=== PATIENT | male | born 1970 | race Caucasian/White ===

== ENCOUNTER 2017-02-20 06:13 | Day surgery (SDC) | payer BC ==
[~2017-02-20 06:13] MED LIST: Buffered Lidocaine 0.9% SYRIN* 5 ML/SYR SYRINGE INTRADERM ONE; Dexamethasone IV* 4 MG/ML 1 ML (4 MG) IV SLOW PU ONE; Famotidine IV* 10 MG/ML 2 ML (20 mg) IV ONE; Levalbuterol 0.63MG/3ML NEB* UNIT OF USE INH ONE
[2017-02-20] MEDS ORDERED: Famotidine IV* 10 MG/ML 2 ML (20 mg) ONE (06:17)
[2017-02-20] MEDS ORDERED: Dexamethasone IV* 4 MG/ML 1 ML (4 MG) ONE (06:18)
[2017-02-20] MEDS ORDERED: Buffered Lidocaine 0.9% SYRIN* 5 ML/SYR SYRINGE ONE (06:18)
[2017-02-20] MEDS ORDERED: Levalbuterol 1.25MG/0.5ML NEB ONE (06:18)
[2017-02-20] MEDS ORDERED: ceFAZolin 2 GM PREMIX (*) 50 ML IVPB ONE (06:18)
[2017-02-20] MEDS ORDERED: EPINEPHrine AMP 1 MG/ML ONE (07:00)
[2017-02-20] MEDS ORDERED: Bupivacaine 0.5% SDV PF* 30 ML VIAL ONE (07:00)
[2017-02-20] MEDS ORDERED: fentaNYL* 50 MCG/ML 2 ML VIAL (100 MCG VIAL) ONE ×4 (07:14→10:48)
[2017-02-20] MEDS ORDERED: Midazolam* 1 MG/ML 10 ML VIAL (10 MG) ONE (07:14)
[2017-02-20] MEDS ORDERED: Atracurium* 10 MG/ML 10 ML VIAL ONE (07:14)
[2017-02-20] MEDS ORDERED: Ondansetron INJ* 2 MG/ML VIAL ONE (07:15)
[2017-02-20] MEDS ORDERED: Propofol* 10 MG/ML 20 ML BTL IV PUSH ONE (07:15)
[2017-02-20] MEDS ORDERED: ROPIVACAINE 5 MG/ML 30 ML BTL (0.5%) ONE (07:15)
[2017-02-20] MEDS ORDERED: Ketorolac INJ* 30 MG/ML 1 ML VIAL ONE (07:15)
[2017-02-20] MEDS ORDERED: HYDROmorphone* 1 MG/ML 1 ML SYR IV PRN (09:16)
[2017-02-20] MEDS ORDERED: Ondansetron INJ* 2 MG/ML VIAL IV PRN (09:16)
[2017-02-20] MEDS ORDERED: DiMENhydriNATE IV* 50 MG/ML VIAL IV PUSH PRN (09:16)
[2017-02-20] MEDS ORDERED: fentaNYL* 50 MCG/ML 2 ML VIAL (100 MCG VIAL) IV PRN (09:16)
[2017-02-20] MEDS ORDERED: oxyCODONE/Acetamin 5/325 MG* TAB ONE (13:30)
[2017-02-20] MEDS: oxyCODONE/Acetamin 5/325 MG* TAB PO PRN (13:39)
[2017-02-20 13:45] VITALS: BP 131/83
--- NOTE | 2017-02-22 03:10 | OP ---
OPERATIVE REPORT: DATE OF OPERATION: 02/20/17 DATE OF : 68 SURGEON: Daniel Lorenz MD [employer] AND FORMER: EVERTON Howe A physician delinquent tax collector assistant was required throughout the length of the procedure for instrument handling and retraction. ANESTHESIOLOGIST: Juanito Pollock MD ANESTHESIA: General anesthesia, regional interscalene block anesthesia, local anesthesia, approximately 7 cc of Marcaine 0.5% with epinephrine. PRE-OP DIAGNOSES: 1. Right shoulder rotator cuff tear, supraspinatus. 2. Right shoulder subacromial impingement with acromial osteophytes. 3. Right shoulder acromioclavicular joint arthritis. 4. Possible right shoulder rotator cuff tendon tear, subscapularis. 5. Possible right shoulder proximal biceps tendinosis. POST-OP DIAGNOSES: 1. Right shoulder rotator cuff tear, supraspinatus. 2. Right shoulder subacromial impingement with acromial osteophytes. 3. Right shoulder acromioclavicular joint arthritis. 4. Right shoulder rotator cuff tendon tear, subscapularis. 5. Right shoulder superior labral tear. OPERATIVE PROCEDURE: 1. Right shoulder arthroscopic rotator cuff tendon repair, supraspinatus. 2. Right shoulder arthroscopic rotator cuff tendon repair, subscapularis. 3. Right shoulder arthroscopic subacromial decompression. 4. Right shoulder arthroscopic distal clavicle resection. 5. Right shoulder arthroscopic limited debridement including superior labrum and biceps release. 6. Right shoulder open proximal biceps tenodesis. 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 See my full history and physical for the patient's injury and course of treatment. The patient responded insufficiently to my nonoperative management and opted for surgery. We discussed at several clinic visits, the possibility of biceps release versus tenodesis. The patient opted for biceps tenodesis if the biceps were to need to be treated because of biceps tendinosis or tearing or an unstable superior labral tear. The patient's pain had originally been posterolaterally, but then was mostly anterior through his course since his injury until surgery. His MRI showed the possibility of tendinosis versus some tearing of the subscapularis tendon and biceps and so I made the preoperative diagnoses of some possible injuries to his shoulder listed above. We spoke in the office about benefits, risks, and potential complications of surgery. ANTIBIOTICS: 2 g Ancef IV. IV FLUIDS: 900 cc crystalloids. ESTIMATED BLOOD LOSS: Minimal. COMPLICATIONS: None. SPECIMEN: None. IMPLANTS: Mitek Healix 5.5-mm anchor, triple loaded x1. Mitek 4.5-mm double loaded suture anchor x1. Arthrex unicortical proximal biceps tenodesis button x1. DESCRIPTION OF PROCEDURE: Preoperative written consent was obtained. Operative extremity was marked in preoperative holding. The patient underwent an interscalene regional anesthetic block by Dr. Pollock in the preop holding room. The patient was taken back to the operating room and placed supine on the operating room table. The patient was intubated. I performed a mini time-out. I performed an examination under anesthesia, which demonstrated 170 degrees of forward flexion, 80 degrees of external and 60 degrees of internal rotation. No manipulation under anesthesia was required. The patient had been consented for possible manipulation under anesthesia. I had included that because of some limitation in range of motion in the office. The patient was placed in the lateral decubitus position with the right shoulder up. 15 pounds of traction. Axillary roll was placed. Beanbag was inflated. All bony prominences padded. The right shoulder was prepped and draped. Surgical time- out was performed. I entered the glenohumeral joint from posterior with the spinal needle and injected 30 cc of normal saline. I then entered the glenohumeral joint from posterior using standard technique and began a diagnostic arthroscopy. I visualized significant fraying about the biceps tendon base and biceps tendon anchor. However, the biceps looked more healthy distally, although looked as though it was subluxed slightly medially from its groove. Then, looked upwards and noted a large full-thickness tear in the supraspinatus rotator cuff tendons. No unstable articular cartilage lesions were noted of either the glenoid or the humeral head. An anterior glenohumeral joint portal was established under direct visualization. I made this portal anterosuperior because of the possibility of a subscapularis rotator cuff tendon tear. I saw a question of subscap tendon tear on my initial diagnostic arthroscope. I placed my anterosuperior portal under direct visualization such that my spinal needle was just anterior to the biceps tendon. I entered a shaver in through that anterosuperior portal and debrided up some blood in the joint. This allowed a better visualization. I debrided some frayed tissue about the biceps anchor. Then, I placed an arthroscopic probe underneath a clear superior labral tear to detect the amount of instability. The biceps tendon tear lifted more than 5 mm off the glenoid rim, which was fully uncovered. Because of the clear superior labral tear and the patient's anterior pain preoperative, with provocative testing positive, I decided to cut the biceps. I cut it part way with arthroscopic scissors and finished it with a VAPR cautery device. I then arthroscopically debrided the superior labrum to a stable base. I confirmed no loose bodies in the inferior axillary pouch. I then went about visualizing the subscapularis tendon. I debrided some rotator interval synovitic tissue. This improved my visualization of the subscapularis tendon. The subscapularis tendon clearly had a full-thickness tear present of its upper half. I debrided about the upper edge of the subscapularis tendon as well as the uncovered footprint of the subscapularis tendon. Given the tear, at this point , I decided to perform a subscapularis tendon repair from the glenohumeral joint. I next made an anteroinferior portal. Knowing that I would eventually place my anchor from this portal, I made my skin incision more medial to allow for an excellent trajectory of that portal into bone. I made my anteroinferior portal and placed a shaver through that and continued my debridement of the footprint. That anteroinferior portal had been made under direct visualization with the spinal needle. Through each of those 2 portals, I debrided the rotator interval back to the coracoid process, which opened up the view nicely. Through the 2 portals, I debrided the footprint with an arthroscopic bur. I brought a grasper through the anterosuperior portal and confirmed that the subscapularis tendon would be brought nicely to a bone with repair. I placed a 7-mm plastic Mitek cannula through the anterosuperior portal. I then placed a metal cannula through the anteroinferior portal. I capped and then screwed in a Mitek 4.5-mm suture anchor, double loaded, through that metal cannula using it as a guide. I then pulled the sutures from the anchor through the anterosuperior portal. I then used SELMA devices to pass suture through the subscapularis tendon. I passed one horizontal mattress and one vertical mattress stitch. The purple suture ended up being more of a vertical mattress with one limb more medial than the others and the blue was more of a horizontal mattress stitch. I tied my knots and cut those knots. I probed the repair and confirmed a stable tendon repair. At this point, I exited the glenohumeral joint. I removed cannulas. I entered the subacromial space from posterior. I placed a new anterior subacromial space portal by feel from inferior to my anterosuperior portal but lateral to my previous anteroinferior portal. I placed irrigation inflow anterior. I entered the subacromial space and encountered some bursitis, but not significant. I established a lateral subacromial portal under direct visualization. I debrided some bursitis including in the gutters and superior to the rotator cuff tendon. A rotator cuff tendon tear and the supraspinatus was clearly visible. I thought it looked like a U-shaped tear at first. I debrided the edges with an arthroscopic shaver as well as the footprint, exposed with an arthroscopic shaver. I used a grasper and pulled the supraspinatus bone and there were some dog ears on either side. For that reason, I decided that we try a rvsc-il-qdlg stitch to convert the U-shaped tear in more of a crescent tear. I prepared the greater tuberosity footprint with an arthroscopic bur from lateral. I created several additional lateral portals, with my visualizing through much of the case at this point through the posterolateral and a lateral portal. For clarification that is, I visualized much of the rotator cuff component in the case through a posterolateral portal and the lateral portal previously created. I next returned my arthroscope to posterior and performed a subacromial decompression with an arthroscopic bur from lateral. I debrided using a bone block resection technique, proximally 6 mm at the inferior hook at the anterior aspect of the acromion. This opened up the space nicely. I started my rotator cuff tendon repair, supraspinatus. While viewing from lateral, I placed a gesl-qj-qjcf stitch through the rotator cuff tendon using a SELMA crescent suture passer and #2 FiberWire. I tied a knot. However, after I placed that knot, I felt that it had just bunched up the tissue. I did not feel as if it had converted the tear to something crescent shaped. It had actually created more of a U-shape to the cuff. I worried about this overly constraining the cuff with stiffness and did not feel it is anatomic. Therefore , I took an arthroscopic scissors and I cut the [id number]-eb-gcjm stitch out. I then used a grasper and decided that the rotator cuff was brought to bone well enough, do not need a psby-sj-havd stitch. It did not seem to an L or reverse L -shaped tear. I under direct visualization, created a third lateral portal in addition to my prior lateral portal and posterolateral portal. This was designed such that the ExpresSew suture passer would be able to work at several different angles, as it was straight in line with the middle of the tear. I placed a 7-mm Mitek plastic cannula through that new portal. I next placed a triple loaded 5.5-mm suture anchor through a percutaneous stab incision superolaterally after punching the bone. I placed this slightly more medial than lateral in the footprint but not along the medial edge. While viewing from lateral and also working from lateral, I next used an ExpresSew suture passer to pass sutures and then after all sutures have been passed, tied 3 horizontal mattress stitches. After the 3 stitches have been tied, I probed the repair and visualized it with rotation of the humerus. I decided that the rotator cuff repair was already excellently firm and stable and did not require a second lateral row. At that point, I cut the sutures. I then proceeded to the acromioclavicular joint. I entered my bur from anterior and debrided some osteophytes about the acromion adjacent to the AC joint. I then debrided 8 mm of the distal end of the clavicle, visualizing well all 4 corners of the distal clavicle. The patient did have a very tall clavicle, but an excellent view from below of the entirety of it. I then removed all instruments and fluid from the subacromial space. We closed the skin incisions with figure-of-8 stitches using nylon 4-0 suture. The beanbag was then deflated and the patient was turned into supine position with Anesthesia watching closely the head and neck. The patient was placed supine on the table. The table was elevated. Some instruments were changed over. I made a small, approximately 3- to 4-cm incision, longitudinal about the anteromedial upper arm, centered just distal to the inferior aspect of the pec major tendon. I dissected quickly through subcutaneous tissue, using spreading dissection. I was then able to feel the inferior edge of the pectoralis major tendon and fell into the bicipital groove. Some upper arm fascia was excised. I felt nicely the bicipital groove. Retractors were placed about the humerus. I next attempted to pull the proximal biceps tendon from the wound. There was significant resistance. Rather than overpowering this, I assumed that the proximal end of the biceps might or might not have been incorporated into one of the two rotator cuff tendon repairs. I decided to leave it as was because the extra collagen may just help that repair. Therefore, I used Bovie electrocautery to release the biceps as far proximally as I could visualize. I then prepared the bicipital groove with electrocautery and a periosteal elevator. I then placed a pin in the proximal humerus through the bicipital groove anterior cortex. I then marked the appropriate spot at the end my stitch in the biceps. I did that with a marking pen. I then used a FiberLoop to place 3 stitches in the biceps tendon. I then fed the biceps tenodesis button. I placed the button through bone, flipped it, tied a knot, placed one more knot through the biceps tendon. I removed the ends of stitches and the proximal biceps stump. Irrigation. Closure of the subcutaneous tissue with buried simple stitches using Vicryl 3-0 suture. Closure of subcuticular layer with a running stitch using Monocryl 4-0 suture. 4x4 and Tegaderm over that open incision. Over the other incisions, I used Xeroform, 4x4's, ABDs, and foam tape. Cooling unit, sling with abduction pillow. Prior to dressing application and after skin closure, I placed proximally 7 cc of local anesthetic in the subcutaneous tissue of that open incision. The patient was brought to the PACU. DISPOSITION: The patient will be discharged when medically stable. The patient will follow up with me in 10 to 14 days postoperatively. The patient will have Percocet for pain control and will receive 5 days of Keflex because of his open surgical incision and hardware placed through it. Aspirin x2 weeks for DVT prophylaxis. [id number]/[facility] #: [id number] [facility]
== END 2017-02-20 13:51 | disposition home or self-care (01) ==
LOC: OR 06:13
PROVIDERS: ATTEND Orthopaedic Surgery
DX: S46.011A Strain of muscle(s) and tendon(s) of the rotator cuff of right shoulder, initial encounter (principal); S46.111A Strain of muscle, fascia and tendon of long head of biceps, right arm, initial encounter; Y92.9 Unspecified place or not applicable; W10.9XXA Fall (on) (from) unspecified stairs and steps, initial encounter; S43.491A Other sprain of right shoulder joint, initial encounter; M75.41 Impingement syndrome of right shoulder; M19.011 Primary osteoarthritis, right shoulder; Z72.0 Tobacco use
CPT/HCPCS: A9270-GY; C1776; J0171; J0690; J1100; J1885; J2250; J2405; J2704; J2795; J3010; J7615

== ENCOUNTER 2019-01-06 21:01 | Emergency (ER) | payer BC ==
[2019-01-06 21:12] VITALS: BP 134/83
--- NOTE | 2019-01-06 21:31 | UC ---
UC General HPI - HPI Summary HPI Summary: on 01/03, had onset of loose watery stools which persisted for 2 days. Yesterday, shortly after eating an [employer] sandwich, had onset of nausea, vomiting and persisent dry heaves. No associated abdominal pain. Last stool passed was yesterday, loosely formed. No fever, recent travel, and no other family members are ill. Last voiced abou 7 or 8 hours ago. Taking frequent small sips of water and finds that hot showers relieves the nausea. Had ER visit about 2 years ago for similar symptoms. - History of Current Complaint Chief Complaint: UCGeneralIllness Stated Complaint: NAUSEA, VOMITING Time Seen by Provider: 01/06/19 21:18 Hx Obtained From: Patient Onset/Duration: Sudden Onset, Lasting Days - 2 Timing: Constant Onset Severity: Moderate Current Severity: Moderate Pain Intensity: 0 Associated Signs & Symptoms: Positive: Diarrhea, Nausea, Vomiting - Allergy/Home Medications Allergies/Adverse Reactions: Allergies Allergy/AdvReac Type Severity Reaction Status Date / Time No Known Allergies Allergy Verified 01/06/19 21:12 Home Medications: Home Medications Calcium Carbonate CHEW TAB* [Tums*] 500 mg PO Q6HR PRN 01/06/19 [History Confirmed 01/06/19] Ibuprofen TAB* [Advil TAB*] 400 mg PO Q6HR PRN 01/06/19 [History Confirmed 01/06] Loperamide CAP* [Imodium CAP*] 2 mg PO Q6HR PRN 01/06/19 [History Confirmed 05/17] PMH/Surg Hx/FS Hx/Imm Hx Previously Healthy: Yes - overweight, heavy smoker. - Surgical History Surgical History: None - Family History Known Family History: Positive: None - Adopted. - Social History Occupation: Employed Full-time Lives: With Family Alcohol Use: None Substance Use Type: None Smoking Status (MU): Heavy Every Day Tobacco Smoker Amount Used/How Often: smoked 25 years 1/2ppd Review of Systems All Other Systems Reviewed And Are Negative: Yes Constitutional: Positive: Fatigue - poor sleep x 2 days. Skin: Positive: Negative Eyes: Positive: Negative ENT: Positive: Negative Respiratory: Negative: Shortness Of Breath, Cough Cardiovascular: Negative: Palpitations, Chest Pain Gastrointestinal: Positive: Vomiting, Diarrhea, Nausea. Negative: Abdominal Pain Genitourinary: Positive: Negative Motor: Positive: Negative Neurovascular: Positive: Negative Musculoskeletal: Positive: Negative Neurological: Negative: Headache Psychological: Positive: Negative Physical Exam Triage Information Reviewed: Yes Appearance: Ill-Appearing - looks fatigued and unwell, Obese Vital Signs: Initial Vital Signs Temp 98.9 F 01/06/19 21:08 Pulse 109 01/06/19 21:08 Resp 12 01/06/19 21:08 BP 134/83 01/06/19 21:08 Pulse Ox 95 01/06/19 21:08 ENT: Positive: Pharynx normal Neck: Positive: Supple, Nontender, No Lymphadenopathy Respiratory: Positive: Lungs clear, Normal breath sounds Cardiovascular: Positive: No Murmur, Tachycardia Abdomen Description: Positive: Nontender, No Organomegaly, Soft Bowel Sounds: Positive: Present Musculoskeletal: Positive: Strength Intact Neurological: Positive: Alert, Muscle Tone Normal Psychological Exam: Normal Skin Exam: Other - no tenting Course/Dx - Course Course Of Treatment: ondansetron for nausea, rehydration. Follow up if vomiting persists, develops fever or decreased voiding. - Differential Dx - Multi-Symptom Differential Diagnoses: Other - gastroenteritis. - Diagnoses Provider Diagnosis: Gastroenteritis Discharge - Sign-Out/Discharge Documenting (check all that apply): Patient Departure All imaging exams completed and their final reports reviewed: No Studies - Discharge Plan Condition: Stable Disposition: HOME Patient Education Materials: Gastroenteritis (ED) Referrals: No Primary Care Phys,NOPCP [Primary Care Provider] - Additional Instructions: You have been given zofran to decrease nausea and vomiting. Continue oral rehydration, taking small amounts of fluid frequently. If you have persistent symptoms or the vomiting does not resolve, please go to the emergency room for assessment. Once nausea improves, begin slow intake of easily digestible solids, soups, pasta, cooked vegetables. - Billing Disposition and Condition Condition: STABLE Disposition: Home
[2019-01-06] MEDS: Ondansetron ODT TAB* 4 MG PO ONE (21:41)
== END 2019-01-06 21:50 | disposition home or self-care (01) ==
LOC: UCEAST 21:01
DX: K52.9 Noninfective gastroenteritis and colitis, unspecified (principal); F17.210 Nicotine dependence, cigarettes, uncomplicated
CPT/HCPCS: 99212; A9270-GY; G0463